=== PATIENT | male | born 2000 | race African-American/Black ===

== ENCOUNTER 2021-01-08 21:05 | Emergency (ER) | payer MEDICAID ==
[~2021-01-08] VITALS: Ht 188 cm; Wt 121.6 kg
[2021-01-09 00:44] VITALS: BP 139/87
== END 2021-01-09 00:52 | disposition home or self-care (01) ==
LOC: ER 21:05
DX: J02.9 Acute pharyngitis, unspecified (principal); Z90.89 Acquired absence of other organs; Z20.822 Contact with and (suspected) exposure to COVID-19
CPT/HCPCS: 36415; 87070; 87426; 87880